=== PATIENT | male | born 1935 | race Caucasian/White ===

== ENCOUNTER → 2018-06-25 | Outpatient (CLI) | payer MEDICARE | END | disposition home or self-care (01) | LOC: CANPRECLI → RAH 14:08 | PROVIDERS: ATTEND Internal Medicine | DX: I73.9 Peripheral vascular disease, unspecified (principal); G91.0 Communicating hydrocephalus; G31.9 Degenerative disease of nervous system, unspecified | CPT/HCPCS: 70450 ==

== ENCOUNTER 2018-07-07 18:14 | Emergency (ER) | payer MEDICARE ==
[2018-07-07 19:30] LABS: APPEARANCE,URINE Clear (CLEAR); BILIRUBIN,URINE Negative (NEGATIVE); COLOR,URINE Yellow (YELLOW); GLUCOSE, URINE (UA) Negative (NEGATIVE); KETONES,URINE Negative (NEGATIVE); LEUKOCYTE ESTERASE ,URINE Negative (NEGATIVE); NITRATE,URINE Negative (NEGATIVE); OCCULT BLOOD,URINE Moderate (NEGATIVE); PROTEIN,URINE Negative (NEGATIVE); UROBILINOGEN,URINE 0.2 mg/dL (0.2-1.0)
[2018-07-07 19:46] LABS: BACTERIA,URINE None Seen /HPF (None Seen); SQUAMOUS EPITHELIAL CELL,UR 0-2 /HPF (0-2); WBC,URINE None Seen /HPF (0-1)
== END 2018-07-07 20:15 | disposition home or self-care (01) ==
LOC: EDH 18:14
DX: M79.81 Nontraumatic hematoma of soft tissue (principal); I10 Essential (primary) hypertension; I25.810 Atherosclerosis of coronary artery bypass graft(s) without angina pectoris; Z96.653 Presence of artificial knee joint, bilateral; Z95.1 Presence of aortocoronary bypass graft; Z87.891 Personal history of nicotine dependence; Z98.890 Other specified postprocedural states
CPT/HCPCS: 81001; 93971

== ENCOUNTER → 2018-08-23 | Outpatient (CLI) | payer MEDICARE ==
[~2018-08-23] MED LIST: AEC81 PO; ALFU10TA18 PO; BUME1TAB12 PO; CARV6.25 PO; DOCU250C14 PO; ESOMEPRAZOLE PO; EZETIMIBE PO; POTA-79 PO; SAW450CA7 PO; SPIR25TA6 PO; VITAMIN B12 PO
== END | disposition home or self-care (01) ==
LOC: RAH 10:57
PROVIDERS: ATTEND Neurological Surgery
DX: G91.9 Hydrocephalus, unspecified (principal); Z98.2 Presence of cerebrospinal fluid drainage device
CPT/HCPCS: 70450

== ENCOUNTER → 2021-05-10 | Outpatient (CLI) | payer MEDICARE ==
[~2021-05-10] MED LIST changes: -ALFU10TA18 PO; +ALFU10TA9 PO; -BUME1TAB12 PO; +BUME1TAB6 PO
== END | disposition home or self-care (01) ==
LOC: RAH 10:49
PROVIDERS: ATTEND Neurological Surgery
DX: G91.0 Communicating hydrocephalus (principal)
CPT/HCPCS: 70450

== ENCOUNTER → 2021-06-13 | Outpatient (CLI) | payer MEDICARE | END | disposition home or self-care (01) | LOC: RAH 13:14 | PROVIDERS: ATTEND Physician Assistant | DX: M47.812 Spondylosis without myelopathy or radiculopathy, cervical region (principal); M48.02 Spinal stenosis, cervical region; M48.062 Spinal stenosis, lumbar region with neurogenic claudication; I70.8 Atherosclerosis of other arteries | CPT/HCPCS: 72050; 72114 ==